=== PATIENT | female | born 1995 | race Caucasian/White ===

== ENCOUNTER 2018-03-09 18:23 | Emergency (ER) | END 2018-03-09 19:47 | disposition home or self-care (01) ==

== ENCOUNTER 2018-08-26 21:37 | Emergency (ER) | payer OTHER ==
[~2018-08-26] VITALS: Ht 168.9 cm; Wt 85.9 kg
[~2018-08-26 21:37] MED LIST: AZIT250T PO; CETI10CA PO; FLUT9.9S NASAL; GUAI5SYR2 PO
[2018-08-26 21:39] VITALS: RESP 19; Ht 168.9 cm; Wt 85.9 kg
[2018-08-27] MEDS ORDERED: ONDANSETRON (ODT) 4 MG TAB ODT STA (02:45)
[2018-08-27] MEDS ORDERED: ACETAMINOPHEN 325 MG TAB PO ONE (03:00)
[2018-08-27] MEDS ORDERED: IBUP-1542 PO (03:53)
[2018-08-27] MEDS ORDERED: ONDA8TAB14 PO (03:53)
--- NOTE | 2018-08-27 03:56 | ERD ---
ER Documentation Chief Complaint Chief Complaint HEADACHE WITH N/V X3DAYS HPI 31-year-old female presents with a headache for the last. Headache is is frontal and described as 7 out of 10, nonradiating and dull but intermittently sharp. She has not been seen for headaches before... She said worsening headaches over the last several weeks. She has had vomiting for the last 3 days although no vomiting today. Vomit is nonbilious nonbloody. She denies visual changes, deficits. She has mild epigastric pain. She denies significant lower abdominal pain, urinary complaints. She recently completed her menstrual period and denies . Patient is an additional complaint of a left-sided breast lump for the last year. Her doctor said it was "nothing "but pain and lump persist. ROS All systems reviewed and are negative except as per history of present illness. Medications Home Meds Active Scripts Ondansetron (Ondansetron Odt) 8 Mg Tab.rapdis, 8 MG PO Q6H PRN for NAUSEA AND/OR VOMITING, #10 TAB Prov:ELIECER REY MD 08/27/18 Ibuprofen* (Motrin*) 600 Mg Tab, 600 MG PO Q6H PRN for PAIN, #20 TAB Prov:ELIECER REY MD 08/27/18 Guaifenesin-Dextromethorphan* (Robitussin* DM) 100MG/10MG/5ML Syrup, 10 ML PO Q6H PRN for COUGH for 5 Days, ML Prov:IBIS GARCIA PA-C 03/09/18 Fluticasone Propionate (Flonase Allergy Relief) 9.9 Ml [place].susp, 2 SPRAY NASAL DAILY, #1 BOTTLE TO EACH NOSTRIL Prov:IBIS GARCIA PA-C 03/09/18 Cetirizine Hcl* (Zyrtec*) 10 Mg Capsule, 10 MG PO DAILY, #14 TAB.CHEW Prov:IBIS GARCIA PA-C 03/09/18 Azithromycin* (Zithromax*) 250 Mg Tablet, 250 MG PO .ZPACK DIRECTED, #6 TAB TAKE 500 MG (2 TABS) THE FIRST DAY THEN 250 MG (1 TAB) DAYS 2-5 Prov:IBIS GARCIA PA-C 03/09/18 Allergies Allergies: Coded Allergies: No Known Allergy (Unverified , 07/03/13) PMhx/Soc Medical and Surgical Hx: pt denies Surgical Hx History of Surgery: No Anesthesia Reaction: No Hx Neurological Disorder: No Hx Respiratory Disorders: No Hx Cardiac Disorders: No Hx Psychiatric Problems: No Hx Miscellaneous Medical Probl: Yes (right shoulder dislocation) Hx Alcohol Use: No Hx Substance Use: No Hx Tobacco Use: No Smoking Status: Never smoker FmHx Family History: No diabetes, No coronary disease, No other Physical Exam Vitals Vital Signs Date Temp Pulse Resp B/P (MAP) Pulse Ox O2 O2 Flow FiO2 Time Delivery Rate 08/26/18 99.3 78 19 153/85 100 21:39 (107) Physical Exam Const: No acute distress Head: Atraumatic Eyes: Normal Conjunctiva. Eyes Ot[place] and extraocular movements intact. ENT: Normal External Ears, Nose and Mouth. TMs and oropharynx normal. Neck: Full range of motion. No meningismus. Resp: Clear to auscultation bilaterally Cardio: Regular rate and rhythm, no murmurs. Mobile approximately 2 cm well- circumscribed lesion at 3:00 in the left breast. No erythema, warmth. Abd: Soft, non tender, non distended. Normal bowel sounds Skin: No petechiae or rashes Back: No midline or flank tenderness Ext: No cyanosis, or edema Neur: Awake and alert. Normal gait. Cranial nerves II through XII grossly intact. Psych: Normal Mood and Affect Results 24 hrs Laboratory Tests Test 08/27/18 02:58 08/27/18 02:59 Urine Color YELLOW Urine Clarity SLIGHTLY CLOUDY Urine pH 5.0 Urine Specific [place] 1.021 Urine Ketones NEGATIVE mg/dL Urine Nitrite NEGATIVE mg/dL Urine Bilirubin NEGATIVE mg/dL Urine Urobilinogen NEGATIVE mg/dL Urine Leukocyte Esterase NEGATIVE Silvia/ul Urine Microscopic RBC 2 /HPF Urine Microscopic WBC 3 /HPF Urine Squamous Epithelial Cells FEW /HPF Urine Bacteria FEW /HPF Urine Mucus FEW /HPF Urine Hemoglobin NEGATIVE mg/dL Urine Glucose NEGATIVE mg/dL Urine Total Protein NEGATIVE mg/dl POC Beta HCG, Qualitative NEGATIVE Current Medications Medications Dose Sig/Cecilio Start Time Status Last (Trade) Ordered Route PRN Stop Time Admin Dose Reason Admin Ondansetron 8 mg ONCE STAT 08/27/18 DC 08/27/18 HCl (Zofran ODT 02:45 02:54 Odt) 08/27/18 02:46 650 mg ONCE ONCE 08/27/18 DC 08/27/18 Acetaminophen PO 03:00 02:54 (Tylenol 08/27/18 03:01 Tab) Procedures/MDM Urine shows no significant abnormal findings. HCG negative. Patient was given Tylenol and Zofran. Patient CT brain which was read as normal by the radiologist. Patient presents with frontal headache for the last week and vomiting which is actually improving. She may have a viral illness. She has no signs of significant abdominal pain. She will be treated with ibuprofen, Zofran, instructions for recheck on next day for lower abdominal pain, on despite treatment, fevers, new worsening symptoms. She should otherwise follow- up with primary doctor this week. The patient was stable with no new complaints during the ER course. Clinically, there is no current evidence to suggest meningitis, sepsis, acute abdomen, pneumonia, stroke, acute coronary syndrome, pulmonary embolism, aortic dissection or any other emergent condition appearing to require further evaluation or hospitalization. Patient counseled regarding my diagnostic impression and care plan. Prior to discharge all questions answered. Pt agrees with treatment plan and understands strict return precautions. Pt is instructed to follow up with primary care provider within 24- 48 hours. Precautionary instructions provided including instructions to return to the ER if not improving or for any worsening or changing symptoms or concerns. Has a benign appearing left breast lump consistent with fibroadenoma, although she is advised to follow with primary doctor for further evaluation and treatment for any breast lump which is not resolved. No signs of mastitis. Departure Diagnosis: Primary Impression: Headache Headache type: unspecified Headache chronicity pattern: unspecified pattern Intractability: not intractable Qualified Codes: R51 - Headache Additional Impression: Vomiting Vomiting type: unspecified Vomiting Intractability: unspecified Nausea presence: unspecified Qualified Codes: R11.10 - Vomiting, unspecified Condition: Stable Patient Instructions: Self-Care for Headaches, Breast Mass, Uncertain Cause, Fibrocystic Breast Disease, Presumed, Vomiting (6Y-Adult) Additional Instructions: CT and urine showed no abnormalities. May be viral illness. Drink plenty of fluids at home. Recheck for new or worsening symptoms with primary care doctor. See primary doctor for further evaluation of breast lump. ELIECER REY MD Aug 27, 2018 03:56
[2018-08-27 04:03] VITALS: BP 139/79; PULSE 57
== END 2018-08-27 04:04 | disposition home or self-care (01) ==
LOC: FTE 21:37
DX: R51 Headache (principal); R11.10 Vomiting, unspecified
CPT/HCPCS: 70450; 81001; 81025; Z7502; Z7610; 81003